=== PATIENT | female | born 1980 | race Caucasian/White ===

== ENCOUNTER 2016-11-01 14:40 | Observation (INO) | payer BC ==
--- NOTE | 2016-11-01 16:33 | GHP ---
[f rep st] HISTORY AND PHYSICAL DATE OF ADMISSION: 11/01/2016 The patient is a 36-year-old, 1, para 0, at 41-3/7 weeks gestation. She was scheduled for induction of labor in the morning. She was supposed to come in this evening for a [place] bulb replacement for induction of labor in the morning. She came in and was examined, she was 3 cm dilated, 80% effaced and - 2 station with a vertex presentation. She states she has been having contractions increasing in frequency and intensity throughout the day. She is occasionally breathing through them, but she does think that she is under- hydrated today. Nonstress test was positive accelerations, no decelerations, and very reassuring. She is having contractions that she is not breathing through at this time. We had a long discussion about management options. Patient is GBS positive and will need vancomycin due to penicillin allergy. I offered to admit the patient and keep her expectantly to see what happens and recheck for the next couple hours versus antibiotics and ruptured membranes and admit patient for augmentation of labor with AROM versus going home and maintaining kick counts and labor precautions and returning in the morning if she has not delivered for induction of labor. We discussed risks and benefits of all these things extensively. Patient has decided that she would like to go home. She will pay attention to kick counts and return if contractions are increasing in frequency and intensity, or if she has spontaneous rupture of membranes or any vaginal bleeding. The patient again states there is great movement and will continue following that closely. The patient will return in the morning if she has not progressed into active labor or delivered. /[id number]/MODL MTDD
== END 2016-11-01 15:34 | disposition home or self-care (01) ==
LOC: FLD 14:40 → UNDOADMOB 14:50
PROVIDERS: ADMIT Obstetrics & Gynecology; ATTEND Obstetrics & Gynecology
DX: O47.1 False labor at or after 37 completed weeks of gestation (principal); Z3A.41 41 weeks gestation of pregnancy

== ENCOUNTER 2016-11-01 22:15 | Inpatient (IN) | payer BC ==
[2016-11-01] MEDS ORDERED: OXYTOCIN/RINGERS LACTATE 1,000 ML IV PRN (23:36)
[2016-11-01] MEDS ORDERED: TERBUTALINE SULFATE 1 MG/ML VIAL IV PRN (23:36)
[2016-11-01] MEDS ORDERED: OLIVE OIL 118 ML BTL MISC PRN (23:36)
[2016-11-01] MEDS ORDERED: LIDOCAINE 1% 300 MG/30 ML SDV SC PRN (23:36)
[2016-11-01] MEDS ORDERED: LR 1,000 ML IV PRN (23:36)
[2016-11-01] MEDS ORDERED: EPSOM SALT 454 GM TP PRN (23:36)
[2016-11-01] MEDS ORDERED: AMPICILLIN SODIUM 2 GM in NS 100 ML IV ONE (23:41)
[2016-11-02 00:03] LABS: % IMMATURE GRANULYOCYTES 0.6 % (0.0-1.1); ABSOLUTE IMMATURE GRANULOCYTES 0.06 10^3/uL (0.00-0.10); ADD DIFF? NO; ADD MORPH? NO; ADD SCAN? NO; ATYPICAL LYMPHOCYTE FLAG 0 (0-99); FRAGMENT RBC FLAG 0 (0-99); HEMATOCRIT 36.3 % (38.0-47.0); HEMOGLOBIN 12.9 g/dL (12.6-16.3); LEFT SHIFT FLG 0 (0-99); LIPEMIA HEMOLYSIS FLAG 90 (0-99); MEAN CELL HEMOGLOBIN 31.8 pg (27.9-34.1); MEAN CELL HEMOGLOBIN CONCENTR. 35.5 g/dL (32.4-36.7); MEAN CELL VOLUME 89.4 fL (81.5-99.8); MEAN PLATELET VOLUME 11.2 fL (8.7-11.7); PLATELET CLUMPS FLAG 10 (0-99); PLATELET COUNT 202 10^3/uL (150-400); RED BLOOD CELL COUNT 4.06 10^6/uL (4.18-5.33); RED CELL DISTRIBUTION WIDTH 14.3 % (11.5-15.2)
--- NOTE | 2016-11-02 00:28 | GHP ---
[f rep st] PREOP HISTORY AND PHYSICAL DATE OF ADMISSION: 11/01/2016 ADMISSION DIAGNOSES: 1. Intrauterine at 41 and 2/7 weeks gestation. 2. Group B strep positive. 3. Active labor. HISTORY OF PRESENT ILLNESS: Patient is a 36-year-old, 1, para 0, at 41 and 2/7 weeks gestati on. She was seen earlier on Labor and Delivery for a labor check and assessment for [place] bulb place ment, and she was found to be 3 cm dilated, 80% effaced, and -2 station. Management options were rev iewed with the patient. The patient elected to go home. She states contractions have progressively increased in frequency and intensity, and so she returned and was 4-5 cm dilated, 80% effaced, -2 sta tion, and intact. She denies any loss of fluid or vaginal bleeding. She denies any headaches or yasmien nges in vision. She is hoping to go naturally. Patient is GBS positive, but has an allergy to penic illin, which causes a rash, so she has an IV started and will be getting antibiotics. PAST MEDICAL HISTORY: Patient's medical history is negative. MEDICATIONS: vitamins and DHA. PAST SURGICAL HISTORY: [place] teeth extraction. ALLERGIES: Penicillin, which causes a rash. 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 She is . She denies tobacco, alcohol, or carlitos g use. FAMILY MEDICAL HISTORY: Noncontributory. 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 Periods every 28 days lasting 5 days. She is a 1, para 0. Current has been uncomplicated. She denies a history of any abnormal Pap smears or sexua lly transmitted diseases. REVIEW OF SYSTEMS: A 10-point review of systems is negative. She states there is good movemen t. No loss of fluid. No vaginal bleeding. Denies any headache, changes in vision, nausea, vomiting , fevers, or chills. PHYSICAL EXAMINATION: VITAL SIGNS: Stable. GENERAL APPEARANCE: Alert and oriented x3. HEART: Ra te is regular regular. LUNGS: Clear to auscultation bilaterally. NEURO: Unremarkable. PSYCH: Sh e has appropriate affect. ABDOMEN: Gravid, nondistended, Nontender. EXTREMITIES: Reveal no calf t enderness or edema. PELVIC: is in the vertex presentation. Cervix is 4-5 cm dilated, 80% ef faced, and -2 station. She is having contractions every 3-5 minutes. heart tracing is categor y 1. LABS: Blood type A positive. Antibody screen negative. Rubella immune. GBS positive. HB sAg negative. HIV negative. Her 50 g glucose was 101. Her Verifi screen was negative. Her ALEXIA was negative. ASSESSMENT AND PLAN: A 36-year-old, 1, para 0, at 41 and 2/7 weeks gestation, in labor. She is GBS positive and allergic to penicillin. GBS is resistant to clindamycin, so she will receive il ncomycin and be managed expectantly. /[id number]/MODL
[2016-11-02] MEDS ORDERED: OLIVE OIL 118 ML BTL ONE (00:38)
[2016-11-02] MEDS ORDERED: AMMONIA AROMATIC 1 EACH AMP IH ONE (00:38)
[2016-11-02] MEDS ORDERED: LIDOCAINE 1% 300 MG/30 ML SDV ONE (00:38)
[2016-11-02] MEDS ORDERED: MISOPROSTOL 200 MCG TAB ONE (00:39)
[2016-11-02] MEDS ORDERED: OXYTOCIN 10 UNIT/ML VIAL ONE (00:39)
[2016-11-02] MEDS ORDERED: TERBUTALINE SULFATE 1 MG/ML VIAL ONE (00:39)
[2016-11-02] MEDS: VANCOMYCIN HCL/NORMAL SALINE 250 ML IV SCH ×2 (00:57→13:25)
[2016-11-02] MEDS ORDERED: ONDANSETRON 4 MG/2 ML VIAL IVP ONE (01:30)
[2016-11-02] MEDS ORDERED: PHENYLEPHRINE HCL 100 MCG/ML SYR ONE (02:50)
[2016-11-02] MEDS ORDERED: LIDO/EPI 2% **for epidural** 20 ML SDV ONE ×2 (02:50→16:12)
[2016-11-02] MEDS ORDERED: fentaNYL 2MCG/ML/BUP 0.1% RTU 100 ML BAG EP ONE (02:50)
[2016-11-02] MEDS ORDERED: fentaNYL 100 MCG/2 ML INJ ONE ×2 (02:50→16:13)
--- NOTE | 2016-11-02 03:27 | PREANESOB ---
Obstetric Pre-Anesthesia Info - General Info Proposed Procedure: KARLY : 1 Para: 0 - Info Status: Full Term FHR Pattern: Reassuring - Labor Status Cervical Dilation per last OB SVE: 6 Indications for Labor Analgesia: Pain Control Labor Epidural: Proposed (RBA of labor epidural discussed) Anesthesia Allergies/Adverse Reactions: Allergy/AdvReac Type Severity Reaction Status Date / Time Penicillins Allergy Verified 11/01/16 15:41 Visit Medications: Generic Name Dose Route Start Last Admin Trade Name Freq PRN Reason Stop Dose Admin Lactated Ringer's 1,000 mls @ 0 mls/hr 11/01/16 23:36 Lr IV 04/30/17 23:35 PRN PRN SEE PROTOCOL CONDITIONS Protocol Per Protocol Oxytocin/Lactated Ringer's 1,000 mls @ 150 mls/hr 11/01/16 23:36 Pitocin 20 Units/Lr (Premix) IV PRN PRN Post- bleeding Vancomycin/Sodium Chloride 250 mls @ 250 mls/hr 11/02/16 01:00 11/02/16 00:57 Vancomycin 1 Gm (Premix) IV 12/02/16 00:59 250 mls Q12H JOE Administration Ibuprofen 600 mg 11/01/16 23:36 Motrin PO 04/30/17 23:35 Q6HRS PRN post , inflammation Lidocaine HCl 300 mg 11/01/16 23:36 Lidocaine Hcl 1% SC 04/30/17 23:35 ONCE PRN episiotomy Magnesium Sulfate 454 gm 11/01/16 23:36 Epsom Salt TP 04/30/17 23:35 Q1H PRN perineal discomfort Sawyer Oil 118 ml 11/01/16 23:36 Sweet Oil MISC 04/30/17 23:35 ONCE PRN perineal massage Terbutaline Sulfate 0.25 mg 11/01/16 23:36 Brethine IV 04/30/17 23:35 ONCE PRN Tachysystole Vancomycin HCl 1 each 11/02/16 00:45 Vancomycin Pharmacy To Dose, 10-15 Mcg/Ml MISC 05/01/17 00:44 AD JOE Discontinued Medications Generic Name Dose Route Start Last Admin Trade Name Freq PRN Reason Stop Dose Admin Ammonia (Aromatic Spirit) Confirm 11/02/16 00:38 Ammonia Aromatic Administered 11/02/16 00:39 Dose 1 each IH .STK-MED ONE Ephedrine Sulfate Confirm 11/02/16 00:39 Ephedrine Sulfate Administered 11/02/16 00:40 Dose 50 mg .ROUTE .STK-MED ONE Fentanyl Confirm 11/02/16 02:50 Sublimaze Administered 11/02/16 02:51 Dose 100 mcg .ROUTE .STK-MED ONE Fentanyl/Bupivacaine HCl Confirm 11/02/16 02:50 Fentanyl/Bupivacaine/Ns 2 Mcg/Ml 0.1% (Premix Administered 11/02/16 02:51 Dose 100 ml EP .STK-MED ONE Ampicillin Sodium 2 gm/ Sodium 110 mls @ 220 mls/hr 11/01/16 23:41 11/02/16 01:34 Chloride IV 11/02/16 00:10 Not Given ONCE ONE Protocol Ampicillin Sodium 1 gm/ Sodium 100 mls @ 200 mls/hr 11/02/16 03:41 Chloride IV 12/02/16 03:40 Q4H JOE Protocol Lidocaine HCl Confirm 11/02/16 00:38 Lidocaine Hcl 1% Administered 11/02/16 00:39 Dose 300 mg .ROUTE .STK-MED ONE Lidocaine/Epinephrine Confirm 11/02/16 02:50 Xylocaine 2%-Epi 1:200,000 Administered 11/02/16 02:51 Dose 20 ml .ROUTE .STK-MED ONE Misoprostol Confirm 11/02/16 00:39 Cytotec Administered 11/02/16 00:40 Dose 1,000 mcg .ROUTE .STK-MED ONE Sawyer Oil Confirm 11/02/16 00:38 Sweet Oil Administered 11/02/16 00:39 Dose 118 ml .ROUTE .STK-MED ONE Ondansetron HCl 4 mg 11/02/16 01:30 11/02/16 01:37 Zofran IVP 11/02/16 01:31 4 mg ONCE ONE Administration Oxytocin Confirm 11/02/16 00:39 Pitocin Administered 11/02/16 00:40 Dose 40 unit .ROUTE .STK-MED ONE Phenylephrine HCl Confirm 11/02/16 02:50 Neosynephrine Administered 11/02/16 02:51 Dose 1,000 mcg .ROUTE .STK-MED ONE Terbutaline Sulfate Confirm 11/02/16 00:39 Brethine Administered 11/02/16 00:40 Dose 1 mg .ROUTE .STK-MED ONE - Focused Exam Height/Weight (Nursing): Height 157.48 cm Weight 70.76 kg Labs: 11/01/16 23:30 Patient ABO/Rh A POSITIVE 11/01/16 23:30
[2016-11-02] MEDS ORDERED: fentaNYL 2MCG/ML/BUP 0.1% RTU 100 ML EP SCH (03:30)
[2016-11-02] MEDS ORDERED: LR 500 ML IV SCH (03:30)
[2016-11-02] MEDS ORDERED: AMPICILLIN SODIUM 1 GM in NS 100 ML IV SCH (03:41)
[2016-11-02] MEDS ORDERED: PHENYLEPHRINE HCL 100 MCG/ML SYR IVP PRN ×2 (05:06→18:33)
--- NOTE | 2016-11-02 06:47 | OBPROG ---
Labor Progress Note Assessment/Plan: Assessment: cat 2 fhr pain well managed with epidural exam 80/-2 cephalic arom brown meconium fluid minimal urine from bacon since epidural placement Plan:bolus of fluid , consulted with dr. janna lemon on plan of care for decreased urine output, iupc if contractions irregular 11/02/16 06:40 Subjective/Intrapartum Course: 11/02/16 06:39 Doing well denies pain. Epidural working well. Discussed irregular contractions waiting 1h after rom to see if contractions become regular and greater in intensity Objective: 11/01/16 23:30 Patient ABO/Rh A POSITIVE 11/01/16 23:30 - SVE Dilation (cm): 7 Effacement (%): 80 Station: -2 Membranes: AROM Amniotic Fluid Color: Meconium Stained - Contraction Pattern Assessment Current Contraction Pattern: Irregular - Procedures Non-surgical Procedures: Amniotomy Oxytocin Orders Assessment - Pre-Induction/Augmentation Assessment Gestational Age: 41 week(s) and 4 day(s) ICD10 Worksheet Patient Problems: Problems Problem Status Onset Active labor at term Acute - ICD10 Problem Qualifiers (1) Active labor at term
--- NOTE | 2016-11-02 09:45 | OBPROG ---
Labor Progress Note Assessment/Plan: Assessment: cat 2 fhr pain well managed with epidural exam 5-6/80/-2 cephalic arom brown meconium fluid minimal urine from bacon since epidural placement iupc placed\pitocin per protocol Plan iupc placement. pitocin per protocol 11/02/16 06:40 11/02/16 09:45 Subjective/Intrapartum Course: 11/02/16 06:39 Doing well denies pain. Epidural working well. Discussed irregular contractions waiting 1h after rom to see if contractions become regular and greater in intensity 11/02/16 09:41 no change to cervix. Remains comfortable. explained iupc placement. need for more information and worry about need for possible c/s and no change to the cervix. Also discussed possible need for section Objective: 11/01/16 23:30 Patient ABO/Rh A POSITIVE 11/01/16 23:30 - SVE Dilation (cm): 5, 6 Effacement (%): 80 Station: -2 Membranes: AROM Amniotic Fluid Color: Meconium Stained - Contraction Pattern Assessment Current Contraction Pattern: Irregular - Procedures Non-surgical Procedures: Amniotomy Oxytocin Orders Assessment - Pre-Induction/Augmentation Assessment Gestational Age: 41 week(s) and 4 day(s) ICD10 Worksheet Patient Problems: Problems Problem Status Onset Active labor at term Acute - ICD10 Problem Qualifiers (1) Active labor at term
[2016-11-02] MEDS ORDERED: OXYTOCIN/LR *STANDARD DOSE PROTOCOL IV SCH (10:00)
[2016-11-02] MEDS ORDERED: OXYTOCIN/RINGERS LACTATE 500 ML IV SCH (10:00)
[2016-11-02] MEDS ORDERED: ACETAMINOPHEN 500 MG TAB PO ONE (10:48)
--- NOTE | 2016-11-02 13:28 | OBPROG ---
Labor Progress Note Assessment/Plan: Assessment: cat 2 fhr pain well managed with epidural exam 5-80/-2 cephalic arom brown meconium fluid minimal urine from bacon since epidural placement iupc placed\pitocin per protocol Plan iupc placement. pitocin per protocol 11/02/16 06:40 11/02/16 09:45 Subjective/Intrapartum Course: 11/02/16 06:39 Doing well denies pain. Epidural working well. Discussed irregular contractions waiting 1h after rom to see if contractions become regular and greater in intensity 11/02/16 09:41 no change to cervix. Remains comfortable. explained iupc placement. need for more information and worry about need for possible c/s and no change to the cervix. Also discussed possible need for section 11/02/16 11:54 Denies pain. Discussed progress verbalized understanding of all going feeling reassured Objective: 11/01/16 23:30 Patient ABO/Rh A POSITIVE 11/01/16 23:30 - SVE Dilation (cm): 8 Effacement (%): 80 Station: -1 Membranes: AROM Amniotic Fluid Color: Meconium Stained - Contraction Pattern Assessment Current Contraction Pattern: Irregular - Procedures Non-surgical Procedures: Amniotomy Oxytocin Orders Assessment - Pre-Induction/Augmentation Assessment Gestational Age: 41 week(s) and 4 day(s) ICD10 Worksheet Patient Problems: Problems Problem Status Onset Active labor at term Acute - ICD10 Problem Qualifiers (1) Active labor at term
[2016-11-02] MEDS ORDERED: CLINDAMYCIN 900 MG/DEXTROSE 50 ML IV ONE (16:15)
[2016-11-02] MEDS ORDERED: OXYTOCIN 100 UNITS/10 ML VIAL ONE (16:45)
[2016-11-02] MEDS ORDERED: DEXAMETHASONE 4 MG/ML VIAL ONE ×2 (16:45→16:46)
[2016-11-02] MEDS ORDERED: ONDANSETRON 4 MG/2 ML VIAL ONE (17:09)
[2016-11-02 17:28] LABS: CORD BLOOD PCO2 57.7 mmHg (37-60); PH ARTERIAL CORD BLOOD 7.25 (7.10-7.37); PH VENOUS CORD BLOOD 7.32 (7.20-7.42)
[2016-11-02] MEDS ORDERED: ACETAMINOPHEN 325 MG TAB PO PRN (18:14)
[2016-11-02] MEDS ORDERED: HYDROCODONE/APAP 5/325 TAB PO PRN (18:14)
[2016-11-02] MEDS ORDERED: SIMETHICONE 80 MG TAB CHEW PO PRN (18:14)
[2016-11-02] MEDS ORDERED: PROMETHAZINE HCL 25 MG/ML INJ IVP PRN (18:14)
--- NOTE | 2016-11-02 18:19 | OBGCSDC ---
General Delivery Information - General Info : 1 Para: 0 Abortions: 0 Type: Primary L&D Analgesia/Anesthesia Type: Epidural Admission Date: 11/01/16 Labs: Patient ABO/Rh A POSITIVE 11/01/16 23:30 Hct 36.3 % (38.0-47.0) L 11/01/16 23:30 - Hospital Course Antepartum: 11/02/16 18:17 GBS + bacturia, and PCN allergy, + SMA carrier Intrapartum: 11/02/16 06:39 Doing well denies pain. Epidural working well. Discussed irregular contractions waiting 1h after rom to see if contractions become regular and greater in intensity 11/02/16 09:41 no change to cervix. Remains comfortable. explained iupc placement. need for more information and worry about need for possible c/s and no change to the cervix. Also discussed possible need for section 11/02/16 11:54 Denies pain. Discussed progress verbalized understanding of all going feeling reassured 11/02/16 18:19 Pt arrested @ 8 cm, heavy meconium, episodes of heart rate decelerations and decreased variability, OP presentation. Diagnosed arrest of dilation and CPD consented for c section delivery. Vaginal - Diagnosis Amniotic Fluid Color: Meconium Stained - Procedures Non-surgical Procedures: Amniotomy - Delivery Providers Surgeon: Nori Levine Beam Dyer Recessed Vat: Radha Steele Anesthesiologist: Valentino Moya - Delivery Number of Prior Sections: 0 Indications for Current Section: Arrest of Dilation, Other (Specify) ( CPD) Non-surgical Procedures: Amniotomy Surgical Procedures: Unscheduled, Low Transverse Intra-op Complications: None EBL: 800 [place] Data [employer] Delivery Date: 11/02/16 Delivery Time: 16:59 DEEJAY: 10/21/16 Gestational Age: 41 week(s) and 5 day(s) Sex of Infant: Female Score (1 Min): 8 Score (5 Min): 9
[2016-11-02] MEDS ORDERED: LACTULOSE 20 GM/30 ML UDCUP PO PRN (18:27)
[2016-11-02] MEDS ORDERED: POLYETHYLENE GLYCOL 3350 17 GM PKT PO PRN (18:27)
[2016-11-02] MEDS ORDERED: BISACODYL 10 MG SUPP PR PRN (18:27)
[2016-11-02] MEDS ORDERED: MAGNESIUM HYDROXIDE 30 ML UDCUP PO PRN (18:27)
--- NOTE | 2016-11-02 18:27 | OBDEL ---
Info Type: Primary Presentation at Delivery: Vertex L&D Analgesia/Anesthesia Type: Epidural GBS+: Yes Antibiotic Used for + GBS: Vancomycin Intrapartum Medications: Generic Name Dose Route Start Last Admin Trade Name Freq PRN Reason Stop Dose Admin Lactated Ringer's 1,000 mls @ 0 mls/hr 11/01/16 23:36 11/02/16 04:16 Lr IV 04/30/17 23:35 1,000 mls PRN PRN Administration SEE PROTOCOL CONDITIONS Protocol Per Protocol Vancomycin/Sodium Chloride 250 mls @ 250 mls/hr 11/02/16 01:00 11/02/16 13:25 Vancomycin 1 Gm (Premix) IV 12/02/16 00:59 250 mls Q12H JOE Administration Oxytocin 30 unit/ Lactated 503 mls @ 0 mls/hr 11/02/16 10:00 11/02/16 10:14 Ringer's IV 05/01/17 09:59 503 mls CONT JOE Administration Protocol Per Protocol Phenylephrine HCl 100 mcg 11/02/16 05:06 11/02/16 04:45 Neosynephrine IVP 05/01/17 05:05 100 mcg ONCE PRN Administration SBP Less Than Discontinued Medications Generic Name Dose Route Start Last Admin Trade Name Freq PRN Reason Stop Dose Admin Acetaminophen 1,000 mg 11/02/16 10:48 11/02/16 11:07 Tylenol PO 11/02/16 10:49 1,000 mg ONCE ONE Administration Ampicillin Sodium 2 gm/ Sodium 110 mls @ 220 mls/hr 11/01/16 23:41 11/02/16 01:34 Chloride IV 11/02/16 00:10 Not Given ONCE ONE Protocol Clindamycin Phosphate/Dextrose 50 mls @ 100 mls/hr 11/02/16 16:15 11/02/16 16 :23 Cleocin 900 Mg (Premix) IV 11/02/16 16:44 50 mls ONCALL ONE Administration Ondansetron HCl 4 mg 11/02/16 01:30 11/02/16 01:37 Zofran IVP 11/02/16 01:31 4 mg ONCE ONE Administration - Hospital Course Intrapartum: 11/02/16 06:39 Doing well denies pain. Epidural working well. Discussed irregular contractions waiting 1h after rom to see if contractions become regular and greater in intensity 11/02/16 09:41 no change to cervix. Remains comfortable. explained iupc placement. need for more information and worry about need for possible c/s and no change to the cervix. Also discussed possible need for section 11/02/16 11:54 Denies pain. Discussed progress verbalized understanding of all going feeling reassured 11/02/16 18:19 Pt arrested @ 8 cm, heavy meconium, episodes of heart rate decelerations and decreased variability, OP presentation. Diagnosed arrest of dilation and CPD consented for c section delivery. Indications for Delivery: Postterm Favorable Cervix Vaginal Delivery - Delivery Provider Delivery Physician/CNM: Nori Levine - Labor and Delivery Onset of Contractions Date: 11/01/16 Onset of Contractions Time: 05:30 Amniotic Fluid Color: Meconium Stained Non-surgical Procedures: Amniotomy EBL: 800 Cord Gases: Cord Gases Cord Blood PCO2 57.7 mmHg (37-60) 11/02/16 17:01 Cord Base Excess TNP 11/02/16 17:01 Cord ABG pH 7.25 (7.10-7.37) 11/02/16 17:01 Cord VBG pH 7.32 (7.20-7.42) 11/02/16 17:01 Operative Report - Delivery Pre-op Diagnoses: arrest of dilation, CPD Post-op Diagnoses: same History of Prior Section: No Number of Prior Sections: 0 Nulliparous Prior to Delivery: Yes Indications for Prior Section: Arrest of Dilation Indications for Current Section: Arrest of Dilation, Other (Specify) ( CPD) Procedure: Unscheduled, Low Transverse Surgeon: Nori Levine Making Machine Catcher: Radha Steele Anesthesiologist: Valentino Moya Complications: None IV Fluid (ml): 2,500 EBL: 800 Cord Gases: Cord Gases Cord Blood PCO2 57.7 mmHg (37-60) 11/02/16 17:01 Cord Base Excess TNP 11/02/16 17:01 Cord ABG pH 7.25 (7.10-7.37) 11/02/16 17:01 Cord VBG pH 7.32 (7.20-7.42) 11/02/16 17:01 [place] [employer] Delivery Date: 11/02/16 Delivery Time: 16:59 DEEJAY: 10/21/16 Gestational Age: 41 week(s) and 5 day(s) Sex of : Female Score (1 Min): 8 Score (5 Min): 9 ICD10 Worksheet Patient Problems: Problems Problem Status Onset Active labor at term Acute Delivered by section Acute - ICD10 Problem Qualifiers (1) Delivered by section
[2016-11-02] MEDS ORDERED: NALOXONE HCL 0.4 MG/ML INJ IVP PRN (18:33)
[2016-11-02] MEDS ORDERED: MEPERIDINE 25 MG/ML SYR IVP PRN (18:33)
[2016-11-02] MEDS ORDERED: ONDANSETRON 4 MG/2 ML VIAL IVP PRN (18:33)
--- NOTE | 2016-11-02 18:38 | POSTANESTH ---
Post Anesthetic Evaluation Cardiovascular Status: Normal, Stable Respiratory Status: Normal, Stable, Similar to Pre-op Cond. Level of Consciousness/Mental Status: Can Participate in Eval, Alert and Oriented (Epidural dosed for C Section, to OR, BP treated, comfortable for surgery, to PACU, no pain or nausea.) Pain Control: Adequate, Prn Tx Ordered Nausea/Vomiting Control: Adequate, Prn Tx Ordered Complications Possibly Related to Anesthesia: None Noted
[2016-11-02] MEDS: KETOROLAC 30 MG/1 ML SDV IVP PRN (19:45)
--- NOTE | 2016-11-02 19:48 | OBPROG ---
Labor Progress Note Assessment/Plan: Assessment:1400 cat 2 fhr pain well managed with epidural exam /-2 cephalic arom brown meconium fluid minimal urine from bacon since epidural placement consult dr. akosua meneses on POC OP presentation vtx Plan pitocin per protocol, discussed c/s if no change in 2h 11/02/16 06:40 11/02/16 09:45 11/02/16 19:46 Subjective/Intrapartum Course: 11/02/16 06:39 Doing well denies pain. Epidural working well. Discussed irregular contractions waiting 1h after rom to see if contractions become regular and greater in intensity 11/02/16 09:41 no change to cervix. Remains comfortable. explained iupc placement. need for more information and worry about need for possible c/s and no change to the cervix. Also discussed possible need for section 11/02/16 11:54 Denies pain. Discussed progress verbalized understanding of all going feeling reassured 11/02/16 18:19 Pt arrested @ 8 cm, heavy meconium, episodes of heart rate decelerations and decreased variability, OP presentation. Diagnosed arrest of dilation and CPD consented for c section delivery. Objective: 11/01/16 23:30 Patient ABO/Rh A POSITIVE 11/01/16 23:30 - SVE Dilation (cm): 8 Effacement (%): 80 Station: -1 Membranes: AROM Amniotic Fluid Color: Meconium Stained - Contraction Pattern Assessment Current Contraction Pattern: Irregular - Procedures Non-surgical Procedures: Amniotomy - AP Antepartum Course: 11/02/16 18:17 GBS + bacturia, and PCN allergy, + SMA carrier Oxytocin Orders Assessment - Pre-Induction/Augmentation Assessment Gestational Age: 41 week(s) and 4 day(s) ICD10 Worksheet Patient Problems: Problems Problem Status Onset Active labor at term Acute Delivered by section Acute - ICD10 Problem Qualifiers (1) Active labor at term
--- NOTE | 2016-11-02 19:51 | OBPROG ---
Labor Progress Note Assessment/Plan: Assessment:1600 cat 2 fhr pain well managed with epidural exam 80/-1 no change in cervix arom brown meconium fluid minimal urine from bacon since epidural placement consult dr. akosua meneses on POC OP presentation vtx pitocin discontinued Plan section for failure to progress failure to descend 11/02/16 06:40 11/02/16 09:45 11/02/16 19:46 11/02/16 19:50 Subjective/Intrapartum Course: 11/02/16 06:39 Doing well denies pain. Epidural working well. Discussed irregular contractions waiting 1h after rom to see if contractions become regular and greater in intensity 11/02/16 09:41 no change to cervix. Remains comfortable. explained iupc placement. need for more information and worry about need for possible c/s and no change to the cervix. Also discussed possible need for section 11/02/16 11:54 Denies pain. Discussed progress verbalized understanding of all going feeling reassured 11/02/16 18:19 Pt arrested @ 8 cm, heavy meconium, episodes of heart rate decelerations and decreased variability, OP presentation. Diagnosed arrest of dilation and CPD consented for c section delivery. Objective: 11/01/16 23:30 Patient ABO/Rh A POSITIVE 11/01/16 23:30 - SVE Dilation (cm): 8 Effacement (%): 80 Station: -1 Membranes: AROM Amniotic Fluid Color: Meconium Stained - Contraction Pattern Assessment Current Contraction Pattern: Irregular, Tachysystole - Procedures Non-surgical Procedures: Amniotomy - AP Antepartum Course: 11/02/16 18:17 GBS + bacturia, and PCN allergy, + SMA carrier Oxytocin Orders Assessment - Pre-Induction/Augmentation Assessment Gestational Age: 41 week(s) and 4 day(s) ICD10 Worksheet Patient Problems: Problems Problem Status Onset Active labor at term Acute Delivered by section Acute - ICD10 Problem Qualifiers (1) Active labor at term
--- NOTE | 2016-11-02 20:11 | GOP ---
[f rep st] OPERATIVE REPORT DATE OF OPERATION: 11/02/2016 SURGEON: Nori Levine MD [facility] SPECIALIST: Radha Steele CNM ANESTHESIA: Epidural anesthesia. ANESTHESIOLOGIST: Valentino Moya MD PREOPERATIVE DIAGNOSIS: Intrauterine at 40-2/7 weeks' gestation with active labor, arrest of dilation, thick meconium, and cephalopelvic disproportion. POSTOPERATIVE DIAGNOSIS: Intrauterine at 40-2/7 weeks' gestation with active labor, arrest of dilation, thick meconium, and cephalopelvic disproportion. PROCEDURE PERFORMED: Primary lower transverse section. FINDINGS: Viable female, Apgars of 8 and 9. Weight has not been performed yet. She was born at 165 9. ESTIMATED BLOOD LOSS: For the procedure was 800 cc. INDICATIONS: The patient is a 36-year-old 1, para 0, at 41-2/7 weeks' gestation with an EDC of 10/21/2016. She was scheduled for an induction of labor on the morning of November 02 due to p ost dates. She was admitted early in the morning in active labor prior to her induction. At that po int she was 4-5 cm, 80%, minus 2, and intact. She has a history of GBS-positive bacteruria and an al lergy to penicillin, and she was started on vancomycin for GBS prophylaxis. The patient slowly progr essed to 8 cm throughout the day, was found to have thick meconium. She was started on Pitocin augme ntation. She had an IUPC placed and despite increasing the Pitocin and the contractions were adequat e, she arrested at 8 cm dilation for greater than 5 hours. Also, baby was felt to be direct occiput posterior presentation and had episodes of decreased variability as well as lowering of the bas laura. Decision was made to proceed with primary lower transverse section due to the diagno sis of arrest of dilation. The patient understood the risks and benefits of the procedure. The risk s including bleeding, infection, damage to internal organs, uterus, tubes, ovaries, bowel, bladder, n erves, blood vessels, ureters, risk of injury, risk of hemorrhage requiring blood transfusion, hysterectomy, or . She understood these risks and benefits, agreed to proceed. DESCRIPTION OF PROCEDURE: Patient was taken to the operating room where her epidural anesthesia was dosed and found to be adequate. She had previously had a [place] catheter placed in her bladder which was showing the urine was bright red blood. She was prepped and draped in the dorsal supine position with a leftward tilt. After a WHO time-out was performed and adequate anesthesia was assured, a tra nsverse skin incision was made with a scalpel, and the incision was carried down to the underlying la dana of fascia also with the scalpel and the Bovie. The fascia was incised in the midline. Fascial i ncision was extended laterally with Ribera scissors. Superior aspect of the fascial incision was grasp ed with Maren clamps, elevated, and the rectus muscles were dissected off sharply. Inferior aspect of the fascial incision was grasped with Maren clamps, elevated, and the rectus muscles were dissect ed off sharply. The rectus muscles were in the midline and the peritoneum was entered supe riorly because the bladder was very high along the lower uterine segment. The peritoneum was entered clear and there was clear fluid upon entry to the peritoneum and there was care taken to avoid the b ladder. The rectus muscles were dissected off bluntly. The bladder blade was inserted. The vesicou terine peritoneum was grasped with the pickups, and entered sharply with care to be superior to the b ladder reflection and the bladder flap was created digitally. The uterus was incised with a knife. There was thick meconium upon entry into the uterine cavity. The uterine incision was extended later ally with blunt dissection. The infant was in direct OP presentation, was delivered atraumatically. The cord was clamped and cut. Cord gases as well as cord bloods were sent and the was handed off to the waiting nurse practitioner. The placenta was removed manually. The uterus was exteriorized, cleared of all clots and debris. The uterine incision was repaired with 0 Vicryl in a running, locked fashion and a second imbricating layer of suture was performed with 0 Vicryl. There was continued bleeding on the left side of the uterine incision and this was repaired with figure-of- eight sutures of #1 Vicryl and good hemostasis was assured. The uterus was returned to the abdomen. Gutters were cleared of all clots and debris. Reinspection of the uterine incision again assured he mostasis. Inspection of the reflection of the abdominal wall revealed bleeding from the anterior por tion where it was dissected off the rectus muscles. This was repaired with 2-0 Vicryl in a running f ashion and figure [id number] sutures were placed and good hemostasis was obtained. The fascia w as closed with #1 Vicryl in a running fashion. Subcutaneous layer was closed with 2-0 Vicryl and the skin was closed with 4-0 Vicryl. The patient tolerated the procedure well. Sponge, lap, needle, an d instrument counts were correct x2. Patient went to the recovery room in good condition. FLUID REPLACEMENT: 2500 cc. URINE OUTPUT: 200 cc and by the end of the case her urine appeared to be less bloody, more normal ur ine color. /[id number]/MODL
[2016-11-03] MEDS: SENNOSIDES/DOCUSATE SODIUM TAB PO SCH ×3 (00:49→20:17)
[2016-11-03] MEDS: KETOROLAC 30 MG/1 ML SDV IVP PRN ×3 (02:20→14:33)
--- NOTE | 2016-11-03 08:27 | OBPP ---
Progress Note Assessment/Plan: Assessment: nipples intact well pain well managed ff2u scant rubra lochia incision remains bandage no bleeding noted ambulatory negative bs denies passing gas bacon remains in place for full 24h Plan po day1 11/02/16 06:40 11/02/16 09:45 11/02/16 19:46 11/02/16 19:50 11/03/16 08:26 Subjective/ Course: bacon in for full 24h bladder swelling, vivian blood before surgery. Lower extremity swelling, vs wnl, well. ambulating with assistance 11/03/16 08:24 Objective: 11/03/16 05:20 Patient ABO/Rh A POSITIVE 11/01/16 23:30 Temp Pulse Resp BP Pulse Ox 36.2 C 60 16 107/59 L 100 11/03/16 03:30 11/03/16 05:30 11/03/16 03:30 11/03/16 03:30 11/03/16 05:30 Physical Exam - Physical Exam General Appearance: WD/WN, alert, no apparent distress Respiratory: chest non-tender, lungs clear, normal breath sounds Cardiac/Chest: regular rate, rhythm Abdomen: normal bowel sounds, dressing (intact, dry, clean) Extremities: normal range of motion, swelling (1-2 plus up to patients knees), Juan's sign (negative homens sign) DTR- Lower Extremities: Knee (R): 1+, Knee (L): 1+ Skin: normal color, warm/dry Neuro/Psych: no motor/sensory deficits, alert, normal mood/affect, oriented x 3
--- NOTE | 2016-11-03 09:47 | POSTANESTH ---
Post Anesthetic Evaluation Cardiovascular Status: Normal, Stable Respiratory Status: Normal, Stable Level of Consciousness/Mental Status: Can Participate in Eval Pain Control: Adequate, Prn Tx Ordered Nausea/Vomiting Control: Adequate, Prn Tx Ordered Complications Possibly Related to Anesthesia: None Noted (unremarkable recovery from epidural anesthesia)
--- NOTE | 2016-11-03 09:51 | SOAPPROG ---
SOAP Progress Note Assessment/Plan: Assessment: S/P epidural analgesia for section. Doing well. Plan: Continue routine post-operative cares. Call with questions or concerns. 11/03/16 09:49 Subjective: Patient seen and examined on the floor. S/P section for arrest of dilation. Doing well today, no concerns. Denies LA toxicity symptoms, LE weakness or urinary retention. Objective: Vital Signs Temp Pulse Resp BP Pulse Ox 36.2 C 60 16 107/59 L 100 11/03/16 03:30 11/03/16 05:30 11/03/16 03:30 11/03/16 03:30 11/03/16 05:30 Laboratory Results 11/03/16 05:20 11/02/16 11/03/16 11/04/16 05:59 05:59 05:59 Intake Total 780 Output Total 1050 Balance -270 GEN: NAD MSK: Strength intact to bilateral LE Neuro: A&O x 3 ICD10 Worksheet Patient Problems: Problems Problem Status Onset Active labor at term Acute Delivered by section Acute
[2016-11-03] MEDS: IRON POLYSAC/IRON HEME 28 MG TAB PO SCH ×3 (11:28→20:17)
[2016-11-03] MEDS: IBUPROFEN 600 MG TAB PO PRN (20:16)
[2016-11-03] MEDS: DOCUSATE SODIUM 100 MG CAP PO PRN (21:18)
[2016-11-04] MEDS: IBUPROFEN 600 MG TAB PO PRN ×4 (05:05→23:04)
[2016-11-04] MEDS: SENNOSIDES/DOCUSATE SODIUM TAB PO SCH ×2 (11:16→23:04)
[2016-11-04] MEDS: IRON POLYSAC/IRON HEME 28 MG TAB PO SCH ×2 (11:16→23:04)
[2016-11-04 20:37] VITALS: O2SAT 99
--- NOTE | 2016-11-04 20:51 | OBPP ---
Progress Note Assessment/Plan: Assessment: pod# 2 s/p PLTCS for arrest of dilation and descent breast feeding anemia Plan: routine post care iron 11/04/16 20:49 Subjective/ Course: bacon in for full 24h bladder swelling, vivian blood before surgery. Lower extremity swelling, vs wnl, well. ambulating with assistance 11/03/16 08:24 11/04/16 20:49 patient is doing well. pain is well controlled. normal lochia. denies headache and changes in vision. breast feeding is going well. ambulating. passing gas. voiding without difficulty. Objective: 11/03/16 05:20 Patient ABO/Rh A POSITIVE 11/01/16 23:30 Temp Pulse Resp BP Pulse Ox 36.6 C 81 16 122/76 H 99 11/04/16 20:00 11/04/16 20:00 11/04/16 20:00 11/04/16 20:00 11/04/16 20:00 Uterine Position/Fundal Height: Umbilicus -2 Physical Exam - Physical Exam Neck: non-tender, full range of motion, supple Respiratory: chest non-tender, lungs clear, normal breath sounds Cardiac/Chest: normal peripheral pulses, regular rate, rhythm Abdomen: normal bowel sounds, non-tender Extremities: normal range of motion, non-tender, normal inspection, normal capillary refill Skin: normal color, warm/dry Neuro/Psych: no motor/sensory deficits, alert, normal mood/affect, oriented x 3
[2016-11-04] MEDS: DOCUSATE SODIUM 100 MG CAP PO PRN (23:04)
[2016-11-05] MEDS: IBUPROFEN 600 MG TAB PO PRN (05:57)
[2016-11-05 08:36] VITALS: BP 128/81; PULSE 64; RESP 17; TEMP 97.9
[2016-11-05] MEDS: IRON POLYSAC/IRON HEME 28 MG TAB PO SCH (08:44)
[2016-11-05] MEDS: SENNOSIDES/DOCUSATE SODIUM TAB PO SCH (08:44)
--- NOTE | 2016-11-05 08:45 | OBGCSDC ---
General Delivery Information - General Info : 1 Para: 1 Abortions: 0 Type: Primary L&D Analgesia/Anesthesia Type: Epidural Admission Date: 11/01/16 Labs: Patient ABO/Rh A POSITIVE 11/01/16 23:30 Hct 29.8 % (38.0-47.0) L 11/03/16 05:20 - Hospital Course Antepartum: 11/02/16 18:17 GBS + bacturia, and PCN allergy, + SMA carrier Intrapartum: 11/02/16 06:39 Doing well denies pain. Epidural working well. Discussed irregular contractions waiting 1h after rom to see if contractions become regular and greater in intensity 11/02/16 09:41 no change to cervix. Remains comfortable. explained iupc placement. need for more information and worry about need for possible c/s and no change to the cervix. Also discussed possible need for section 11/02/16 11:54 Denies pain. Discussed progress verbalized understanding of all going feeling reassured 11/02/16 18:19 Pt arrested @ 8 cm, heavy meconium, episodes of heart rate decelerations and decreased variability, OP presentation. Diagnosed arrest of dilation and CPD consented for c section delivery. : bacon in for full 24h bladder swelling, vivian blood before surgery. Lower extremity swelling, vs wnl, well. ambulating with assistance 11/03/16 08:24 11/04/16 20:49 patient is doing well. pain is well controlled. normal lochia. denies headache and changes in vision. breast feeding is going well. ambulating. passing gas. voiding without difficulty. 11/05/16 08:40 S) Pt doing well, she is ambulating without difficulty; well; reports +Flatus and +BM; denies any depression; desires d/c home today O) VSS Exam: constitutional: well nourished white female, A&O x3 HEENT: normocephalic, atraumatic, neck supple CV: RRR, no murmur Pulm: CTA-B Abdomen: soft, nontender, nondistended, +BSx4 Incision: C/D/I, steristrips present Lochia: min rubra Extremities: 2+ pedal edema, negative elias's sign neuro: grossly intact A) [id number] post op Day#3, s/p primary c/s anemia P) d/c home today routine post op care no driving x 1-2 weeks f/u in office in 1-2 weeks S&S of infection discussed pelvic rest x 6 weeks 11/05/16 08:46 Vaginal - Delivery Provider Delivery Physician/CNM: Nori Levine - Diagnosis Amniotic Fluid Color: Meconium Stained - Procedures Non-surgical Procedures: Amniotomy - Delivery Providers Surgeon: Nori Levine Outside Sales Account Executive: Radha Steele Anesthesiologist: Valentino Moya - Delivery Non-surgical Procedures: Amniotomy Data Fontanez Delivery Date: 11/02/16 Delivery Time: 16:59 DEEJAY: 10/21/16 Gestational Age: 42 week(s) and 1 day(s) Sex of Infant: Female [place] Weight (gm): 3472 g Score (1 Min): 8 Score (5 Min): 9 Discharge Information - Discharge Information Prescriptions: Hydrocodone/APAP 5/325 [[place] 5/325 (*)] 1 - 2 tab PO Q4HRS PRN #30 tab PRN Reason: Pain, Moderate Ibuprofen [Motrin (*)] 600 mg PO Q6HRS PRN #30 tab PRN Reason: post , inflammation Iron Polysacch/Iron Heme Polyp [Bifera] 28 mg PO BID #60 tab Condition: Good Instruction/Follow Up: Two Weeks
== END 2016-11-05 12:00 | disposition home or self-care (01) | DRG 766 ==
LOC: FLD 22:15 → OBSVTOIN 23:36 → FOB 11-02 20:20
PROVIDERS: ADMIT Obstetrics & Gynecology; ATTEND Obstetrics & Gynecology
PROC: 10907ZC Drainage of Amniotic Fluid, Therapeutic from Products of Conception, Via Natural or Artificial Opening (ICD-10-PCS; principal; 2016-11-01)
PROC: 10D00Z1 Extraction of Products of Conception, Low, Open Approach (ICD-10-PCS; principal; 2016-11-01)
DX: O48.0 Post-term pregnancy (principal); O62.0 Primary inadequate contractions; O99.820 Streptococcus B carrier state complicating pregnancy; O77.0 Labor and delivery complicated by meconium in amniotic fluid; O64.0XX0 Obstructed labor due to incomplete rotation of fetal head, not applicable or unspecified; O76 Abnormality in fetal heart rate and rhythm complicating labor and delivery; Z3A.41 41 weeks gestation of pregnancy; Z37.0 Single live birth
CPT/HCPCS: J1100; J1885; J2370; J2405; J2590; J3010; J3105; J3370

== ENCOUNTER 2017-02-05 05:54 | Day surgery (SDC) | payer BC ==
[2017-02-05] MEDS ORDERED: VANCOMYCIN HCL/NORMAL SALINE 250 ML IV ONE (06:00)
[2017-02-05] MEDS ORDERED: VANCOMYCIN PHARMACY TO DOSE MISC ONE (06:12)
[2017-02-05] MEDS ORDERED: LIDOCAINE 1% 2 ML INJ ID PRN (06:13)
[2017-02-05] MEDS ORDERED: LR 1,000 ML IV ONE (06:13)
--- NOTE | 2017-02-05 06:46 | PDHPUP ---
History & Physical Update H&P update statement: This history and physical update is based on an assessment of the patient which was completed after admission or registration (within 24 hours), but prior to the surgery/procedure. H&P update: H&P reviewed & patient examined, no change in patient's condition since H&P completed
[2017-02-05 06:47] VITALS: PULSE 57
[2017-02-05] MEDS ORDERED: MIDAZOLAM 2 MG/2 ML VIAL IVP ONE (07:03)
--- NOTE | 2017-02-05 07:04 | PDANEPAE ---
ANE History of Present Illness here for robotic hernia repair ANE Past Medical History - Cardiovascular History Hx Hypertension: No Hx Arrhythmias: No Hx Chest Pain: No Hx Coronary Artery / Peripheral Vascular Disease: No Hx CHF / Valvular Disease: No Hx Palpitations: No - Pulmonary History Hx COPD: No Hx Asthma/Reactive Airway Disease: No Hx Recent Upper Respiratory Infection: No Hx Oxygen in Use at Home: No Hx Sleep Apnea: No Sleep Apnea Screening Result - Last Documented: Negative - Neurologic History Hx Cerebrovascular Accident: No Hx Seizures: No Hx Dementia: No - Endocrine History Hx Diabetes: No - Renal History Hx Renal Disorders: No - Liver History Hx Hepatic Disorders: No - Neurological & Psychiatric Hx Hx Neurological and Psychiatric Disorders: No - Cancer History Hx Cancer: No - Congenital Disorder History Hx Congenital Disorders: No - GI History Hx Gastrointestinal Disorders: No - Other Health History Other Health History: NEG - Chronic Pain History Chronic Pain: No - Surgical History Prior Surgeries: 10/2016 ANE Review of Systems Review of systems is: negative Review of Systems: - Exercise capacity Exercise capacity: >=4 METS METS (RN): 6 METS ANE Patient History - Allergies Allergies/Adverse Reactions: Penicillins Allergy (Verified 11/01/16 15:41) - Home Medications Home medications: none Home Medications: DAILY 02/02/17 [Last Taken Unknown] - NPO status NPO Status: no food or drink >8 hours NPO Since - Liquids (Date): 02/04/17 NPO Since - Liquids (Time): 21:00 NPO Since - Solids (Date): 02/04/17 NPO Since - Solids (Time): 19:30 - Smoking Hx Smoking Status: Never smoked - Family Anes Hx Family Hx Anesthesia Complications: NEG ANE Labs/Vital Signs - Vital Signs Vital Signs: reviewed preoperatively; see RN documention for details Blood Pressure: 111/76 Heart Rate: 57 Respiratory Rate: 16 O2 Sat (%): 96 Height: 157.48 cm Weight: 56.699 kg ANE Physical Exam - Airway Neck exam: FROM Mallampati Score: Class 1 - Pulmonary Pulmonary: no respiratory distress - Cardiovascular Cardiovascular: regular rate and rhythym - ASA Status ASA Status: II ANE Anesthesia Plan Anesthesia Plan: general endotracheal anesthesia
[2017-02-05] MEDS ORDERED: BUPIVACAINE 0.5% 30 ML SDV ONE (07:06)
[2017-02-05] MEDS ORDERED: PROPOFOL/EMULSION 500 MG/50 ML BOTTLE IV ONE ×2 (07:09→07:41)
[2017-02-05] MEDS ORDERED: fentaNYL 100 MCG/2 ML INJ ONE ×2 (07:09→09:05)
[2017-02-05] MEDS ORDERED: MIDAZOLAM 2 MG/2 ML VIAL ONE (07:15)
[2017-02-05] MEDS ORDERED: NALOXONE HCL 0.4 MG/ML INJ IVP PRN (07:50)
[2017-02-05] MEDS ORDERED: HYDROCODONE/APAP 5/325 TAB PO PRN (07:50)
[2017-02-05] MEDS ORDERED: HYDROmorphONE/DILAUDID 1 MG/ML INJ IVP PRN (07:50)
[2017-02-05] MEDS ORDERED: fentaNYL 100 MCG/2 ML INJ IVP PRN (07:50)
[2017-02-05] MEDS ORDERED: OXYCODONE/APAP 5/325 TAB PO PRN (07:50)
[2017-02-05] MEDS ORDERED: ALBUTEROL 3 ML DEYVIAL IH PRN (07:50)
[2017-02-05] MEDS ORDERED: ONDANSETRON 4 MG/2 ML VIAL IVP PRN (07:50)
[2017-02-05] MEDS ORDERED: DEXAMETHASONE 4 MG/ML VIAL IVP PRN (07:50)
--- NOTE | 2017-02-05 09:55 | POSTOPPROG ---
Post Op Note Date of Operation: 02/05/17 Surgeon: Ni Samano Physical Laboratory Assistant: tor Anesthesiologist: erika Anesthesia: GET(General Endotracheal) Pre-op Diagnosis: L inguinal hernia Post-op Diagnosis: Left incarcerated inguinal hernia Indication: 37 year old with left inguinal hernia Procedure: Davinci left inguinal hernia with mesh Findings: LARGE fat containing hernia Inf/Abcess present in the surg proc area at time of surgery?: No EBL: Minimal Specimen(s): hernia contents
[2017-02-05 10:41] VITALS: RESP 20
[2017-02-05 11:27] VITALS: BP 109/67; O2SAT 98
[2017-02-05 11:43] VITALS: TEMP 98.1
--- NOTE | 2017-02-05 17:51 | POSTANESTH ---
Post Anesthetic Evaluation Cardiovascular Status: Normal, Stable Respiratory Status: Normal, Stable, Requires Airway Assist Level of Consciousness/Mental Status: Can Participate in Eval Pain Control: Adequate, Prn Tx Ordered Nausea/Vomiting Control: Adequate, Prn Tx Ordered Complications Possibly Related to Anesthesia: None Noted
== END 2017-02-05 11:30 | disposition home or self-care (01) ==
LOC: FSGY 05:54
PROVIDERS: ATTEND Surgery
PROC: 8E0W8CZ Robotic Assisted Procedure of Trunk Region, Via Natural or Artificial Opening Endoscopic (ICD-10-PCS; principal; 2017-02-05 07:15)
PROC: 0YU64JZ Supplement Left Inguinal Region with Synthetic Substitute, Percutaneous Endoscopic Approach (ICD-10-PCS; principal; 2017-02-05 07:15)
DX: K40.30 Unilateral inguinal hernia, with obstruction, without gangrene, not specified as recurrent (principal)
CPT/HCPCS: C1781; J2250; J2704; J3010; J3370